=== PATIENT | female | born 1965 | race Caucasian/White ===

== ENCOUNTER 2017-11-25 13:54 | Inpatient (IN) | payer OTHER ==
[2017-11-25] MEDS ORDERED: NS 1,000 ML IV ONE (14:05)
--- NOTE | 2017-11-25 14:30 | EDPHY ---
H & P Stated Complaint: right lower quadrant pain x 10 days worse today - Personal History LMP (Females 10-55): Post Menopausal Current Tetanus Diphtheria and Acellular Pertussis (TDAP): Yes - Medical/Surgical History Hx Asthma: No Hx Chronic Respiratory Disease: No Hx Diabetes: No Hx Cardiac Disease: No Hx Renal Disease: No Hx Cirrhosis: No Hx Alcoholism: No Hx HIV/AIDS: No Hx Splenectomy or Spleen Trauma: No Other PMH: none - Social History Smoking Status: Never smoked Time Seen by Provider: 11/25/17 14:25 HPI/ROS: CHIEF COMPLAINT: RLQ pain HISTORY OF PRESENT ILLNESS: The patient is a 52 y/o female with a history of breast cancer complaining of waxing and waning RLQ abdominal pain progressive over the last 10 days that has become constant and severe this afternoon. The pain is typically better in the mornings and worsens throughout the day, but is much worse today than anytime in the past 10 days. She has associated nausea. Her pain is worse with movement/walking. She initially attributed her pain to constipation, but did not have relief with bowel movements. No vomiting, diarrhea, fever, urinary symptoms. No history of kidney stones. Last PO intake some toast this morning and some water during the day. REVIEW OF SYSTEMS: A ten system review of systems was performed and is negative with the exception of the items mentioned in the HPI. Past medical history: Breast cancer post chemotherapy and right mastectomy diagnosed 3 years ago; BuSpar, acyclovir Past surgical history: C-sections x2; tubal ligation; mastectomy Family history: Noncontributory Social history: Daughter at bedside. Nonsmoker. Occasional alcohol use. Employed. Visiting from [place]. General Appearance: Alert. Vital signs reviewed. Blood pressure 131/92, heart rate 102 at triage. Eyes: Pupils equal and round, no conjunctival injection, no discharge. Anicteric. ENT, Mouth: Mucous membranes are moist, no oropharyngeal erythema or edema. Neck: No lymphadenopathy, supple. Respiratory: Lungs are clear to auscultation; no wheezes, rales, or rhonchi. Cardiovascular: Regular rate and rhythm; no murmur, rub, or gallop. Gastrointestinal: Abdomen is soft, RLQ tenderness with guarding, no palpable masses or organomegaly. Skin: Warm and dry, no rashes on exposed skin, normal color. Back: Nontender to palpation over the thoracolumbar spine. No CVAT. Extremities: No lower extremity edema, no calf tenderness or swelling. Neurological: Alert and oriented. Moving all four extremities easily and equally. Psychiatric: Normal affect. (Shruti Huerta) Constitutional: Initial Vital Signs Temperature (C) 36.7 C 11/25/17 14:14 Heart Rate 102 H 11/25/17 14:14 Respiratory Rate 16 11/25/17 14:14 Blood Pressure 131/92 H 11/25/17 14:14 O2 Sat (%) 97 11/25/17 14:14 O2 Delivery Mode Room Air O2 (L/minute) 3 Allergies/Adverse Reactions: No Known Allergies Allergy (Unverified 11/25/17 14:14) Home Medications: Medication Instructions Recorded ALPRAZolam [Xanax 0.25 MG (*)] 0.25 mg PO TID PRN 11/25/17 Acetaminophen [Tylenol 325mg (*)] 650 mg PO Q6 PRN 11/25/17 Acyclovir [Zovirax 400 mg (*)] 400 mg PO BID 11/25/17 Bupropion HCl [Wellbutrin Xl] 300 mg PO DAILY 11/25/17 Loratadine/Pseudoephedrine 1 each PO DAILY 11/25/17 [Claritin-D 24 Hour Tablet] traMADol [Ultram 50 mg (*)] 50 mg PO Q6HRS PRN #20 tab 11/28/17 Medical Decision Making - Diagnostics Imaging: Discussed imaging studies w/ call center representative Radiologist, I viewed and interpreted images myself ED Course/Re-evaluation: This is a 52 y/o female with history of breast cancer post treatment who presents with a 10-day history of progressive RLQ pain that is now severe. She has pronounced RLQ tenderness on exam and appears uncomfortable. Concerned for appendicitis, possibly ruptured due to the long course. Plan for IV, labs, abdominal CT, and symptom management. 4mg IV Zofran ordered. Patient is declining narcotics at this time. Patient re-interviewed at 3:00 p.m.. She agrees to take a low dose of short- acting pain medication and is given 50 mcg of fentanyl IV. 3:[address] scan results pending. 3:45 p.m. care transferred to Dr. Paniagua. CT scan pending. (Shruti Huerta) Differential Diagnosis: Abdominal pain including but not limited to appendicitis, metastatic disease, ovarian cyst, ovarian torsion, cholecystitis, pancreatitis, gastritis and urinary tract infection. (Shruti Huerta) Other Provider: 1500: I assumed care of this patient from Dr. Huerta at shift change. 1629: I spoke with Dr. Stover, radiologist, who reports there is a large and ready to burst appendix. 1gm Meropenem administered, I will also consult with the general surgeon. 1630: Reassessed patient and discussed imaging findings. I have also discussed probable admission and appendectomy; which she is comfortable with. Her last P.O. was a piece of toast at 10:00, 6.5 hours ago, and she had a sip of water 3 hours ago. 1636: I consulted with Dr. Garvin, general surgeon, regarding this patient. He agrees to consult on this patient. (Mannie Paniagua) - Data Points Laboratory Results: Laboratory Results 11/25/17 14:45 Medications Given: Discontinued Medications Acetaminophen (Tylenol) 1,000 mg PO Q8H ОЛЬГА Stop: 05/24/18 17:59 Last Admin: 11/28/17 10:13 Dose: 1,000 mg Acyclovir (Acyclovir) 400 mg PO BID ОЛЬГА Stop: 12/26/17 08:59 Last Admin: 11/28/17 08:32 Dose: 400 mg Bupropion HCl (Wellbutrin Xl) 300 mg PO DAILY ОЛЬГА Stop: 05/25/18 08:59 Last Admin: 11/28/17 08:30 Dose: 300 mg Cefazolin Sodium (Ancef Syringe) Confirm Administered Dose 2 gm .ROUTE .STK-MED ONE Stop: 11/25/17 19:40 Last Admin: 11/25/17 20:21 Dose: 1 gm Cetirizine HCl (Zyrtec) 10 mg PO DAILY ОЛЬГА Stop: 05/25/18 08:59 Last Admin: 11/28/17 08:31 Dose: 10 mg Fentanyl (Sublimaze) 50 mcg IVP EDNOW ONE Stop: 11/25/17 15:05 Last Admin: 11/25/17 15:08 Dose: 50 mcg Fentanyl (Sublimaze) 50 mcg IVP ONCE ONE Stop: 11/25/17 19:46 Last Admin: 11/25/17 19:45 Dose: 50 mcg Fentanyl (Sublimaze) 25 - 100 mcg IVP Q5M PRN PRN Reason: PACU, IMMEDIATE Pain control Stop: 11/25/17 23:25 Last Admin: 11/25/17 23:18 Dose: 50 mcg Heparin Sodium (Porcine) (Heparin Sc Injection) Confirm Administered Dose 10, 000 unit .ROUTE .STK-MED ONE Stop: 11/25/17 19:40 Last Admin: 11/25/17 20:20 Dose: 5,000 unit Hydromorphone HCl (Dilaudid) 0.5 mg IVP EDNOW ONE Stop: 11/25/17 16:11 Last Admin: 11/25/17 16:15 Dose: 0.5 mg Hydromorphone HCl (Dilaudid) 0.5 mg IVP ONCE ONE Stop: 11/25/17 17:45 Last Admin: 11/25/17 17:50 Dose: 0.5 mg Hydromorphone HCl (Dilaudid) 0.2 - 0.4 mg IVP Q1HR PRN PRN Reason: Pain, Breakthrough Stop: 12/05/17 17:47 Last Admin: 11/27/17 07:28 Dose: 0.4 mg Hydromorphone HCl (Dilaudid) 0.1 - 0.4 mg IVP Q10M PRN PRN Reason: PACU, PAIN Stop: 11/25/17 23:25 Last Admin: 11/25/17 23:10 Dose: 0.2 mg Meropenem 1 gm/ Sodium (Chloride) 120 mls @ 120 mls/hr IV EDNOW ONE PRN Reason: Protocol Stop: 11/25/17 17:28 Last Admin: 11/25/17 17:03 Dose: 120 mls Sodium Chloride (Ns) 1,000 mls @ 0 mls/hr IV ONCE ONE PRN Reason: Wide Open Stop: 11/25/17 14:06 Last Admin: 11/25/17 14:05 Dose: 1,000 mls Meropenem 1 gm/ Sodium (Chloride) 120 mls @ 120 mls/hr IV Q12H ОЛЬГА PRN Reason: Protocol Stop: 11/26/17 17:59 Last Admin: 11/26/17 16:14 Dose: 120 mls Ketorolac Tromethamine (Toradol) 15 mg IVP Q6HRS ОЛЬГА Stop: 11/30/17 17:59 Last Admin: 11/28/17 12:10 Dose: Not Given Midazolam HCl (Versed) 2 mg IVP ONCALL ONE Stop: 11/25/17 19:27 Last Admin: 11/25/17 19:41 Dose: 2 mg Ondansetron HCl (Zofran) 4 mg IVP EDNOW ONE Stop: 11/25/17 14:41 Last Admin: 11/25/17 14:53 Dose: 4 mg Ondansetron HCl (Zofran) 4 mg IVP EDNOW ONE Stop: 11/25/17 16:12 Last Admin: 11/25/17 16:15 Dose: 4 mg Ondansetron HCl (Zofran) 4 mg IVP Q6H PRN PRN Reason: Nausea/Vomiting, Can't Take PO Stop: 05/25/18 18:21 Last Admin: 11/27/17 07:28 Dose: 4 mg Promethazine HCl (Phenergan) 12.5 mg IVP ONCE ONE Stop: 11/25/17 16:49 Last Admin: 11/25/17 16:49 Dose: 12.5 mg Tramadol HCl (Ultram) 50 mg PO Q6HRS PRN PRN Reason: Pain, Moderate Able to Take PO Stop: 05/26/18 17:33 Last Admin: 11/27/17 20:32 Dose: 50 mg Point of Care Test Results: Chemistry 11/25/17 14:57 POC Sodium 142 mEq/L mEq/L (135-145) POC Potassium 3.2 mEq/L L mEq/L (3.3-5.0) POC Chloride 104 mEq/L mEq/L (97-110) POC BUN 6 mg/dL L mg/dL (7-23) POC Creatinine 0.7 mg/dL mg/dL (0.6-1.0) POC Glucose 88 mg/dL mg/dL (70-100) ISTAT H&H 11/25/17 14:57 POC Hgb 14.3 gm/dL gm/dL (12.6-16.3) POC Hct 42 % % (38-47) Departure - Departure Disposition: To OP Cath/Surgery Clinical Impression: Acute appendicitis Qualifiers: Acute appendicitis type: other Qualified Code(s): K35.890 - Other acute appendicitis without perforation or gangrene Condition: Fair Report Scribed for: Shruti Huerta Report Scribed by: Enid Curry Date of Report: 11/25/17 Time of Report: 14:38 Physician Review and Approval Statement: 11/25/17 14:32 Portions of this note were transcribed by the medical examiner. I, Dr. Shruti Huerta, personally performed the history, physical exam, and medical decision- making; and confirmed the accuracy of the information in the transcribed note. ( Shruti Huerta)
[2017-11-25] MEDS ORDERED: ONDANSETRON 4 MG/2 ML VIAL IVP ONE ×2 (14:40→16:11)
[2017-11-25] MEDS ORDERED: fentaNYL 100 MCG/2 ML INJ IVP ONE ×2 (15:04→19:45)
[2017-11-25 15:16] LABS: PLATELET COUNT 382 10^3/uL (150-400)
[2017-11-25] MEDS ORDERED: IOPAMIDOL (ISOVUE-300) 100 ML BTL ONE (15:30)
[2017-11-25] MEDS ORDERED: HYDROmorphONE/DILAUDID 2 MG/ML INJ IVP ONE (16:10)
[2017-11-25] MEDS ORDERED: MEROPENEM 1 GM in NS 100 ML IV ONE (16:29)
[2017-11-25] MEDS ORDERED: PROMETHAZINE HCL 25 MG/ML INJ ONE (16:44)
[2017-11-25] MEDS ORDERED: PROMETHAZINE HCL 25 MG/ML INJ IVP ONE (16:48)
[2017-11-25] MEDS ORDERED: HYDROmorphONE/DILAUDID 1 MG/ML INJ IVP ONE (17:44)
[2017-11-25] MEDS ORDERED: HYDROmorphONE/DILAUDID 1 MG/ML INJ ONE ×2 (17:46→22:42)
[2017-11-25] MEDS ORDERED: ONDANSETRON 4 MG/2 ML VIAL IVP PRN ×2 (17:48→22:25)
[2017-11-25] MEDS ORDERED: LR 1,000 ML IV SCH (18:00)
--- NOTE | 2017-11-25 18:05 | GHP ---
DATE OF ADMISSION: 11/25/2017 ADMITTING DIAGNOSIS: Acute retrocecal appendicitis. 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 It started out as a diffuse abdominal discomfort. She then found she was getting constipated. She took several laxatives and moved her bowels yesterday. This did not improve her pain control. Her pain was worse today, which prompted her visit to the emergency room. There is no history of a recent upper respiratory tract infection or diarrhea. There is no history of travel. She did have antibiotics approximately 2 months ago, when she had a dog bite to her right arm (the side on which she has had a mastectomy and axillary lymphadenectomy). She believes the antibiotics were Augmentin. There is no history of inflammatory bowel disease. There is a history of prior similar symptoms. Her prior abdominal surgeries included 2 C- sections, 1 laparoscopic evaluation for possible ectopic , and 1 laparoscopic tubal ligation. SOCIAL HISTORY: She smoked from age [age], approximately 4 cigarettes a month. She drinks 2 bottles of beer every 2 weeks. ALLERGIES: She has no known drug allergies. CURRENT MEDICATIONS: Include: Acyclovir 400 mg twice a day, Buspar, and Claritin-D. PAST SURGICAL HISTORY: Include a tonsillectomy. She had a right breast biopsy. She subsequently had a mastectomy with axillary dissection and placement of tissue valve repairer reclamation. She then had valve repairer reclamation removed and implant placed. She had then 5 revisions of the implant because of dissatisfaction with the location. She did have rheumatic fever when she was 6. She never, however, has had cardiac echo. There is no history of tuberculosis, hepatitis, or transfusions. REVIEW OF SYSTEMS: She did have chemotherapy and radiation for her breast cancer. Her followup mammogram is due this week on her left breast. Review of systems otherwise quite negative. There are no limits on her activities. No history of steroid use. FAMILY HISTORY: Her mother is 70 years old, and has had colon cancer. Her father is 72 years old, and does have a non-Hodgkin lymphoma. The patient is followed in by 1 full brother who is 46 years old. She then has non- related adopted siblings and half siblings. PHYSICAL EXAMINATION: GENERAL: She is awake and alert. VITAL SIGNS: Her blood pressure is 131/84 at 99, respiratory rate 16, room-air saturation is 97%. Temperature is 36.5. Her weight is 68 kg. GENERAL: She is awake, alert, and pleasant. HEENT: Her skull is normocephalic and atraumatic. NEUROLOGIC: There are no focal lateralizing neurologic findings. She is oriented to person, place, and time. GCS is 15. NECK: There are no carotid bruits. Thyroid is not enlarged. LYMPHATICS: There is no cervical, supraclavicular, axillary, or inguinal lymphadenopathy identified. There is no lymphedema present BACK: Unremarkable. LUNGS: Clear to auscultation. CARDIAC: Exam shows S1, S2 to be normal, with normally split S2. I do not detect any murmurs at this time. ABDOMEN: Shows hypoactive bowel sounds. Obturator sign is negative, psoas is plus/minus. She is tender with cough over the iliac crest. To palpation left upper quadrant is 1 on a scale of 1-10, left abdomen is 1, left lower quadrant is 2, epigastrium is 2, periumbilical area is 2, suprapubic area is 3, right upper quadrant is 2, right mid abdomen is 2, right lower quadrant is 3, over the iliac crest is 8. Labs reveal a white count of 9.9 with 74% neutrophils. Hematocrit is 41. Platelet count is 382. Chemistry reveals a potassium of 3.2, BUN of 6, creatinine of 0.7. Urine is unremarkable; it shows a specific gravity of 1.002. CT is consistent with a retrocecal appendix. I will plan a laparoscopic resection of her retrocecal appendix. She understands there is a small chance that this will require an open surgery. /[id number]/MODL MTDD
[2017-11-25] MEDS ORDERED: fentaNYL 100 MCG/2 ML INJ ONE ×3 (19:23→23:17)
[2017-11-25] MEDS ORDERED: ROCURONIUM 50 MG/5 ML VIAL ONE ×2 (19:24→20:58)
[2017-11-25] MEDS ORDERED: LIDOCAINE 2% 2 ML INJ ONE ×2 (19:24)
[2017-11-25] MEDS ORDERED: PROPOFOL 200 MG/20 ML VIAL ONE (19:24)
[2017-11-25] MEDS ORDERED: DEXAMETHASONE 4 MG/ML VIAL ONE (19:25)
[2017-11-25] MEDS ORDERED: ONDANSETRON 4 MG/2 ML VIAL ONE (19:25)
[2017-11-25] MEDS ORDERED: KETOROLAC 30 MG/1 ML SDV ONE (19:25)
[2017-11-25] MEDS ORDERED: MIDAZOLAM 2 MG/2 ML VIAL IVP ONE (19:26)
--- NOTE | 2017-11-25 19:28 | PDANEPAE ---
ANE History of Present Illness lap sylvie ANE Past Medical History - Cardiovascular History Hx Hypertension: No Hx Arrhythmias: No Hx Chest Pain: No Hx Coronary Artery / Peripheral Vascular Disease: No Hx CHF / Valvular Disease: No Hx Palpitations: No Cardiovascular History Comment: rheumatic fever as child, no sequelae - Pulmonary History Hx COPD: No Hx Asthma/Reactive Airway Disease: No Hx Recent Upper Respiratory Infection: No Hx Oxygen in Use at Home: No Hx Sleep Apnea: No - Neurologic History Hx Cerebrovascular Accident: No Hx Seizures: No Hx Dementia: No - Endocrine History Hx Diabetes: No Hypothyroid: No Hyperthyroid: No Obesity: no - Renal History Hx Renal Disorders: No - Liver History Hx Hepatic Disorders: No - Neurological & Psychiatric Hx Hx Neurological and Psychiatric Disorders: No - Cancer History Hx Cancer: Yes Cancer History Comment: breast ca ANE Review of Systems Review of Systems: - Exercise capacity Exercise capacity: >=4 METS ANE Patient History - Allergies Allergies/Adverse Reactions: No Known Allergies Allergy (Unverified 11/25/17 14:14) - Home Medications Home medications: home medication list seen and reviewed Home Medications: ALPRAZolam [Xanax 0.25 MG (*)] 0.25 mg PO TID PRN 11/25/17 [Last Taken 11/11/17] Acetaminophen [Tylenol 325mg (*)] 650 mg PO Q6 PRN 11/25/17 [Last Taken 11/22/17 ] Acyclovir [Zovirax 400 mg (*)] 400 mg PO BID 11/25/17 [Last Taken 11/25/17 07:00 ] Bupropion HCl [Wellbutrin Xl] 300 mg PO DAILY 11/25/17 [Last Taken 11/25/17 07: 00] Loratadine/Pseudoephedrine [Claritin-D 24 Hour Tablet] 1 each PO DAILY 11/25/17 [Last Taken 11/25/17 07:00] - NPO status NPO Since - Liquids (Date): 11/25/17 NPO Since - Liquids (Time): 13:00 NPO Since - Solids (Date): 11/25/17 NPO Since - Solids (Time): 10:00 - Anes Hx Anes Hx: no prior problems - Smoking Hx Smoking Status: Former smoker ANE Labs/Vital Signs - Labs Result Diagrams: 11/25/17 14:45 - Vital Signs Blood Pressure: 128/80 Heart Rate: 101 Respiratory Rate: 16 O2 Sat (%): 97 Height: 170.18 cm Weight: 68.039 kg ANE Physical Exam - Airway Mallampati Score: Class 2 Mouth exam: normal dental/mouth exam - Pulmonary Pulmonary: no respiratory distress - Cardiovascular Cardiovascular: regular rate and rhythym - ASA Status ASA Status: I, E ANE Anesthesia Plan Anesthesia Plan: general endotracheal anesthesia
[2017-11-25] MEDS ORDERED: ceFAZolin 1 GM/5 ML SYR ONE (19:39)
[2017-11-25] MEDS ORDERED: HEPARIN 5,000 UNIT/0.5 ML INJ ONE (19:39)
[2017-11-25] MEDS ORDERED: MIDAZOLAM 2 MG/2 ML VIAL ONE (19:51)
[2017-11-25] MEDS ORDERED: SUGAMMADEX SODIUM 200 MG/2 ML VIAL IVP ONE (22:02)
[2017-11-25] MEDS ORDERED: HYDROmorphONE/DILAUDID 2 MG/ML INJ IVP PRN (22:25)
[2017-11-25] MEDS ORDERED: LR 500 ML IV PRN (22:25)
[2017-11-25] MEDS ORDERED: ALBUTEROL 3 ML DEYVIAL IH PRN (22:25)
[2017-11-25] MEDS ORDERED: NALOXONE HCL 0.4 MG/ML INJ IVP PRN (22:25)
--- NOTE | 2017-11-25 22:25 | POSTANESTH ---
Post Anesthetic Evaluation Cardiovascular Status: Normal, Stable Respiratory Status: Normal, Stable Level of Consciousness/Mental Status: Can Participate in Eval Pain Control: Adequate, Prn Tx Ordered Nausea/Vomiting Control: Adequate, Prn Tx Ordered Complications Possibly Related to Anesthesia: None Noted
[2017-11-25] MEDS: fentaNYL 100 MCG/2 ML INJ IVP PRN ×2 (22:28→23:18)
--- NOTE | 2017-11-25 22:31 | POSTOPPROG ---
Post Op Note Date of Operation: 11/25/17 Surgeon: Pieter Garvin Anesthesiologist: Phillip Dorado Anesthesia: GET(General Endotracheal) Pre-op Diagnosis: acute retrocecal appendicitis Post-op Diagnosis: acute retrocecal appendicitis w/ locally contained rupture & extensive fibr Indication: acute retrocecal appendicitis Procedure: Laparoscopic appendectomy Findings: acute retrocecal appendicitis w/ locally contained rupture & extensive fibr Inf/Abcess present in the surg proc area at time of surgery?: Yes Depth: Organ Space EBL: 50-100 Total fluids administered: 700 Complications: none Drains: [place] (Right paracolic space) Specimen(s): appendix
[2017-11-25] MEDS: HYDROmorphONE/DILAUDID 1 MG/ML INJ IVP PRN (22:43)
[2017-11-25] MEDS ORDERED: ALPRAZolam 0.25 MG TAB PO PRN (22:43)
[2017-11-25] MEDS: ACETAMINOPHEN 500 MG TAB PO SCH (23:35)
[2017-11-25] MEDS: KETOROLAC 15 MG/1 ML SDV IVP SCH (23:36)
[2017-11-26] MEDS: KETOROLAC 15 MG/1 ML SDV IVP SCH ×5 (00:04→23:18)
--- NOTE | 2017-11-26 00:24 | GOP ---
DATE OF OPERATION: 11/25/2017 SURGEON: Pieter Garvin MD ANESTHESIA: General endotracheal anesthesia. ANESTHESIOLOGIST: Phillip Dorado MD. PREOPERATIVE DIAGNOSIS: Acute retrocecal appendicitis. POSTOPERATIVE DIAGNOSIS: Acute retrocecal appendicitis with locally contained rupture, and extensive fibrosis, and calcified cystic change, left ovary. PROCEDURE PERFORMED: Laparoscopic appendectomy. FINDINGS: Acute retrocecal appendicitis with focally contained rupture and extensive fibrosis, as well as calcified cystic change on left ovary. SPECIMENS: Appendix. ESTIMATED BLOOD LOSS: Approximately 50-60 cc. INDICATIONS: Acute retrocecal appendicitis. DESCRIPTION OF PROCEDURE: The patient was placed on the operating table in the supine position. After induction of adequate general endotracheal anesthesia, she was carefully prepared for surgery. Two slides were placed on the left side of the patient, appropriately padded. A safety strap was placed across her legs. Another safety strap was placed across her lower chest with care taken not to impact her right breast implant. This was so the patient could be rotated at a steep angle to the left to facilitate dissection if necessary. The abdomen was now clipped, prepped, and draped. A surgical time-out was carried out and agreed to by all members of the operative team. First incision was made at the umbilicus. Was a curvilinear incision. The skin then sharply incised. Dissection was continued with Bovie electrocautery and blunt dissection to expose the anterior rectus sheath bilaterally. This was elevated between Allis clamps and incised in the midline. A purse-string of #0 PDS was placed. An 11/12 mm disposable Bandar trocar was introduced into the peritoneum. Intra-abdominal insufflation was carried out to 15 mmHg. On inspection, there were minimal adhesions in the left lower quadrant from her prior 2 laparoscopies and 2 C sections. A 5 mm suprapubic incision was made. A port was placed. Careful manipulation revealed that I was able to use a left lower quadrant incision. The left lower quadrant incision was made sharply using Bovie electrocautery. A 5 mm port was placed at the site as well. The adherent omentum was carefully pulled back from the left lower quadrant. The terminal ileum was adherent to the sidewall of the pelvis. It was carefully freed with the Harmonic scalpel. The cecum was now further exposed. The patient was 1st placed in the 25-degree Trendelenburg and rotated 10 degrees to the left. The retroperitoneum was incised along the white line of Toldt. This was quite thickened because of inflammation. Dissection was continued up to the level of the liver. The cecum was carefully pulled medially. Care was taken to carefully dissect all adherent tissue off the cecum and appendix. This was a slow and tedious task. Care was taken to look for the ureter but it was not identified. The terminal ileum had to be carefully from the dense adhesions to the cecum to expose the appendiceal base. Once this was done, the appendix was cleared circumferentially. Note, this was a long, slow tedious process to avoid injury as there was intense scarring in the retroperitoneum. Finally, the cecum and appendiceal base were identified. The cecum was cleared circumferentially. Note was made all dissection was carried out with the Harmonic scalpel and a right angle clamp, which was used for dissection spreading. Irrigation was carried out with heparin- and Ancef-containing irrigant. Approximately 1200 cc was used during the course of the procedure. As the appendix was carefully , a small amount of contained whitish fluid was identified. This was carefully aspirated. Once the appendix has been cleared circumferentially, careful dissection was carried out along the anterior surface of the appendix. The mesoappendix had been divided at the appendiceal base. The medial anterior side of the appendix was against the cecum. This also was carefully taken down, 1st in a spreading technique and then with the Harmonic scalpel. After approximately 2 inches of circumferential clearance had been obtained, the appendix was transected on the cecum using a 35 mm Endo KAITLYNN stapler. The appendix was further dissected off the retroperitoneum. This again continued to be a slow and tedious process. The appendix apex was attached to the undersurface of the liver. It was carefully cleared in a fat plane using the Harmonic scalpel. The specimen was removed in an EndoCatch bag. Pneumoperitoneum was re-established. The appendix was taken to the back table and carefully inspected to make sure the full length of the appendix had been removed, and I believe it had been completely removed. Irrigation was carried out with more heparin- and Ancef- containing irrigant. Hemostasis was deemed to be finally excellent, but because of the purulent change, a GRIFFIN drain was placed in the right retroperitoneum and let out through the suprapubic port site. Before that was done, inspection was carried out to evaluate the left ovary. There was certainly a round calcified cystic change on the ovary. Photographic documentation was carried out. Because there was potentially an infection, I opted not to proceed with an oophorectomy at this time. We will refer this issue to the patient's child care. Ports had been removed under direct vision. The end of the GRIFFIN drain that was placed in the right retrocecal space comes out the suprapubic site. It was secured at this level with a suture of #3-0 silk. Bulb suction was attached. The Bandar trocar was removed. The midline fascial defect was closed with an inverted simple suture of #0 PDS at its midpoint. The purse-string was now tied. The umbilical site was well irrigated with heparin- and Ancef-containing irrigant. Hemostasis was found to be excellent. Inverted simple sutures of #4- 0 Vicryl were placed both at the left lower quadrant and suprapubic site. Mastisol and Steri-Strips were applied. Band-Aids were positioned. A sterile dressing was placed around the drain. The patient was transferred to recovery in stable and satisfactory condition. INFECTION OR ABSCESS: Yes, there was a contained abscess in the periappendiceal region in the retroperitoneum. TOTAL FLUIDS ADMINISTERED: 700 cc. COMPLICATIONS: None. DRAINS: A GRIFFIN drain was placed in the right pericolic gutter. /[id number]/MODL MTDD
[2017-11-26] MEDS: ACETAMINOPHEN 500 MG TAB PO SCH ×4 (02:07→23:31)
[2017-11-26] MEDS: HYDROmorphONE/DILAUDID 1 MG/ML INJ IVP PRN ×5 (03:23→20:40)
[2017-11-26] MEDS: MEROPENEM 1 GM in NS 100 ML IV SCH ×2 (05:05→16:14)
[2017-11-26] MEDS: ACYCLOVIR 400 MG TAB PO SCH ×2 (08:49→20:41)
[2017-11-26] MEDS: CETIRIZINE 10 MG TAB PO SCH (08:49)
[2017-11-26] MEDS: buPROPion XL 150 MG TAB PO SCH (08:49)
--- NOTE | 2017-11-26 10:10 | ASMTCMCOM ---
CM Note CM Note Notes: Reviewed chart for discharge planning purposes. Anticipate patient will be able to discharge home independently with no CM needs. CM available for any changes. Date Signed: 11/26/2017 10:09 AM Electronically Signed By:Parisa Segundo RN
--- NOTE | 2017-11-26 11:36 | SOAPPROG ---
SOAP Progress Note Assessment/Plan: POD#1 11/26/17 11:33 Assessment: Doing well, Passing flatus, VSS, GRIFFIN drainage serosanguineous, + BS, Incisions clean Plan: Will recheck labs in AM will try clears Subjective: I've been up walking, I'm passing gas, I'm hungry Objective: Vital Signs Temp Pulse Resp BP Pulse Ox 36.8 C 84 14 102/62 94 11/26/17 08:00 11/26/17 08:00 11/26/17 08:00 11/26/17 08:00 11/26/17 08:00 11/25/17 11/26/17 11/27/17 05:59 05:59 05:59 Intake Total 3100 0 Output Total 0 25 Balance 3100 -25 - Time Spent With Patient Time Spent With Patient: 15 Physical Exam - Physical Exam General Appearance: WD/WN, alert, no apparent distress Respiratory: lungs clear, normal breath sounds Cardiac/Chest: regular rate, rhythm Abdomen: normal bowel sounds, non-tender, soft Pelvic Exam: deferred Rectal: deferred Back: Normal inspection Skin: normal color, warm/dry Extremities: normal range of motion, non-tender Neuro/Psych: no motor/sensory deficits, alert, normal mood/affect, oriented x 3 ICD10 Worksheet Patient Problems: Problems Problem Status Onset Acute appendicitis Acute
--- NOTE | 2017-11-26 13:23 | PDMN ---
Medical Necessity Medical necessity: Change to inpt as of 11/26/17 @ 1310. Pt meets inpt criteria per MD order and [facility] [place] [id number] Appendectomy, with Abscess or Peritonitis, by Laparoscopy, 2 days. 52 y/o admitted w/acute rectocecal appendicitis w/rupture, lap appy performed, IV abx's, IV pain meds Dilaudid and Toradol, IVF. Anticipate >2MN for ongoing med nec treatment.
[2017-11-26] MEDS ORDERED: ONDANSETRON DISINTEGRATING 4 MG TAB PO PRN (18:22)
[2017-11-26] MEDS: ONDANSETRON 4 MG/2 ML VIAL IVP PRN (18:26)
[2017-11-27] MEDS: HYDROmorphONE/DILAUDID 1 MG/ML INJ IVP PRN ×2 (04:26→07:28)
[2017-11-27 05:28] LABS: PLATELET COUNT 284 10^3/uL (150-400)
[2017-11-27] MEDS: KETOROLAC 15 MG/1 ML SDV IVP SCH ×4 (06:33→23:00)
[2017-11-27] MEDS: ONDANSETRON 4 MG/2 ML VIAL IVP PRN (07:28)
[2017-11-27] MEDS: ACETAMINOPHEN 500 MG TAB PO SCH ×2 (07:47→16:26)
[2017-11-27] MEDS: buPROPion XL 150 MG TAB PO SCH (07:47)
[2017-11-27] MEDS: ACYCLOVIR 400 MG TAB PO SCH ×2 (07:48→20:32)
[2017-11-27] MEDS: CETIRIZINE 10 MG TAB PO SCH (07:48)
--- NOTE | 2017-11-27 14:56 | SOAPPROG ---
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 11/27/17 14:52 Objective: Vital Signs Temp Pulse Resp BP Pulse Ox 37.0 C 92 16 95/57 L 95 11/27/17 12:00 11/27/17 12:00 11/27/17 12:00 11/27/17 12:00 11/27/17 12:00 Laboratory Results 11/27/17 05:11 11/27/17 05:11 11/26/17 11/27/17 11/28/17 05:59 05:59 05:59 Intake Total 2980 Output Total 45 20 Balance 2935 -20 ICD10 Worksheet Patient Problems: Problems Problem Status Onset Acute appendicitis Acute
[2017-11-27] MEDS ORDERED: traMADol 50 MG TAB PO PRN (17:34)
[2017-11-27] MEDS ORDERED: HYDROmorphONE/DILAUDID 2 MG/ML INJ IVP PRN (22:00)
[2017-11-28] MEDS: ACETAMINOPHEN 500 MG TAB PO SCH ×2 (02:31→10:13)
[2017-11-28] MEDS: KETOROLAC 15 MG/1 ML SDV IVP SCH ×2 (06:08→12:10)
--- NOTE | 2017-11-28 07:54 | PDDCSUM ---
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 She was taken to the operating room after evaluation with Dr. Garvin. The patient underwent laparoscopic appendectomy. The appendix was in a retrocecal position and dissection was somewhat difficult according to the operative notes. The patient did well in the postoperative. She was able to tolerated diet. Her pain was controlled with oral medications. She was afebrile. After insuring she had returned to her baseline cardiopulmonary status the patient had her drain removed and was sent home on tramadol for pain medications no further antibiotics. She will follow up with a physician in [facility] or here in [place]. She has had all of her questions addressed. She will call or return for problems related to her hospitalization or surgery such as but not limited to pain not controlled by medication, inability to eat, fever greater than 101.5, redness or drainage from her incision or recurrence of her symptoms. The patient has been warned about the possibility of abscess formation and signs to look for in the immediate postoperative period.
[2017-11-28 08:05] VITALS: BP 118/84
[2017-11-28] MEDS: buPROPion XL 150 MG TAB PO SCH (08:30)
[2017-11-28] MEDS: CETIRIZINE 10 MG TAB PO SCH (08:31)
[2017-11-28] MEDS: ACYCLOVIR 400 MG TAB PO SCH (08:32)
== END 2017-11-28 12:00 | disposition home or self-care (01) | DRG 343 ==
LOC: F3E 23:32 → OBSVTOIN 11-26 13:10
PROVIDERS: ADMIT Surgery; ATTEND Surgery
PROC: 0DTJ4ZZ Resection of Appendix, Percutaneous Endoscopic Approach (ICD-10-PCS; principal; 2017-11-26)
DX: K35.80 Unspecified acute appendicitis (principal); Z85.3 Personal history of malignant neoplasm of breast
CPT/HCPCS: 82435-PO; 82565-PO; 82947-PO; 84132-PO; 84295-PO; 84520-PO; 85014-PO; 96374; G0378; J1100; J1170; J1644; J1885; J2185; J2250; J2405; J2550; J2704; J3010; Q9967